=== PATIENT | male | born 1965 | race African-American/Black ===

== ENCOUNTER 2016-04-23 10:57 | Emergency (ER) | payer SELFPAY ==
[~2016-04-23] VITALS: Ht 172.7 cm; Wt 74.8 kg
[2016-04-23 11:03] VITALS: BP 149/83
--- NOTE | 2016-04-23 11:09 | NUR ---
50/M TO [facility] FOR PRE BOOK. PT HAS NO MEDICAL COMPLAINTS, DENIES PAIN AT THIS TIME. LUNGS CLEAR BILAT. HR EVEN AND REGULAR. AAOX4. VSS. NO SIGNS OF DISTRESS. REDNESS NOTED IN LEFT EYE.
[2016-04-23 11:59] VITALS: BP 149/83
--- NOTE | 2016-04-23 11:59 | NUR ---
Patient discharged with v/s stable. Written and verbal after care instructions given and explained. Patient verbalized understanding. Police with in custody. All questions addressed prior to discharge. Advised to follow up with PMD.
== END 2016-04-23 11:59 ==
LOC: MED 10:57
DX: R07.89 Other chest pain (principal); H11.32 Conjunctival hemorrhage, left eye; F17.200 Nicotine dependence, unspecified, uncomplicated